=== PATIENT | male | born 1935 | race Caucasian/White ===

== ENCOUNTER 2016-12-04 10:13 | Emergency (ER) | payer MEDICARE, BC ==
[~2016-12-04] VITALS: Ht 177.8 cm; Wt 79.4 kg
[~2016-12-04 10:13] MED LIST: AMLO5TAB2 PO; BUDE10.2 IH; CHOL10007 PO; CYCL1DRO OP; FINA5TAB4 PO; LOSA100T6 PO; MULT-245 PO; SIMV20TA3 PO; VITA1000 PO; [UNRECOGNIZED DRUG - REMARK]
--- NOTE | 2016-12-04 10:56 | PHYS DOC ---
Adult General Chief Complaint Chief Complaint: LOWER EXT PAIN [facility] HPI Patient is a 81 year old male presents the emergency room with a complaint of atraumatic left lower leg swelling that has been progressive over the past 3-4 months. Patient denies history of surgery to the left lower leg. He denies any previous infections to his left lower leg. Patient is currently taking doxycycline for pneumonia that was diagnosed clinically. This was done and is primary care doctor's office last week. Patient denies any fevers, chills, myalgias or arthralgias. He does state that he continues to have a productive cough that has not seemed to improve while taking the doxycycline. Patient was initially prescribed another antibiotic, which he does not remember the name of , approximately 3 weeks ago. He states that he did not take the antibiotic as he reviewed the potential side effects of the medication and determined them to be deleterious to his health. He denies any history of chronic lung disease. Review of Systems Review of Systems Constitutional: Denies fever or chills [] Eyes: Denies change in visual acuity, redness, or eye pain [] HENT: Denies nasal congestion or sore throat [] Respiratory: Denies cough or shortness of breath [] Cardiovascular: No additional information not addressed in HPI [] GI: Denies abdominal pain, nausea, vomiting, bloody stools or diarrhea [] : Denies dysuria or hematuria [] Musculoskeletal: Denies back pain or joint pain [] Integument: Denies rash or skin lesions [] Neurologic: Denies headache, focal weakness or sensory changes [] Endocrine: Denies polyuria or polydipsia [] Allergies Allergies Allergies Coded Allergies Type Severity Reaction Last Updated Verified No Known Drug Allergies 04/22/14 No Physical Exam Physical Exam Constitutional: Well developed, well nourished, no acute distress, non-toxic appearance. Patient is afebrile. Patient is seated in a high semi-Fowlers position in no acute distress. Patient did show me some yellowish brown phlegm that he expectorated prior to me coming into the room. HENT: Normocephalic, atraumatic, bilateral external ears normal, oropharynx moist, no oral exudates, nose normal. [] Eyes: PERRLA, EOMI, conjunctiva normal, no discharge. [] Neck: Normal range of motion, no tenderness, supple, no stridor. [] Cardiovascular:Heart rate regular rhythm, grade 2 systolic flow murmur. PMI is displaced laterally. There is no JVD or lower extremity edema. Lungs & Thorax: There is no evidence respiratory distress or respiratory fatigue. Patient's lung sounds are clear to auscultation bilaterally. Abdomen: Bowel sounds normal, soft, no tenderness, no masses, no pulsatile masses. [] Skin: There is a dollar sized area of erythema and slightly raised skin to the anterior lower hines. There is no fluctuant pocket or purulent drainage. There is no ascending lymphangitis. Patient's left lower extremity has no palpable venous cord suggestive of a DVT. There is no fusiform swelling. Left lower extremity has warm, dry skin. There is a strong dorsalis pedis and posterior tibialis pulse. Capillary refill is less than 2 seconds. Back: No tenderness, no CVA tenderness. [] Extremities: No tenderness, no cyanosis, no clubbing, ROM intact, no edema. [] Neurologic: Alert and oriented X 3, normal motor function, normal sensory function, no focal deficits noted. [] Psychologic: Affect normal, judgement normal, mood normal. [] Current Patient Data Vital Signs Vital Signs Date Time Temp Pulse Resp B/P Pulse Ox O2 Delivery O2 Flow Rate FiO2 12/04/16 12:57 62 138/67 96 Room Air 12/04/16 11:57 20 12/04/16 10:25 98.2 98.2 Lab Values Laboratory Tests Test 12/04/16 11:15 White Blood Count 7.9x10^3/uL (4.0-11.0) Red Blood Count 3.98x10^6/uL (4.30-5.70) L Hemoglobin 12.5g/dL (13.0-17.5) L Hematocrit 36.0% (39.0-53.0) L Mean Corpuscular Volume 90fL (79-100) Mean Corpuscular Hemoglobin 31pg (25-35) Mean Corpuscular Hemoglobin Concent 35g/dL (31-37) Red Cell Distribution Width 13.1% (11.5-14.5) Platelet Count 211x10^3/uL (140-400) Neutrophils (%) (Auto) 74% (31-73) H Lymphocytes (%) (Auto) 14% (24-48) L Monocytes (%) (Auto) 8% (0-9) Eosinophils (%) (Auto) 3% (0-3) Basophils (%) (Auto) 1% (0-3) Neutrophils # (Auto) 5.8x10^3uL (1.8-7.7) Lymphocytes # (Auto) 1.1x10^3/uL (1.0-4.8) Monocytes # (Auto) 0.6x10^3/uL (0.0-1.1) Eosinophils # (Auto) 0.2x10^3/uL (0.0-0.7) Basophils # (Auto) 0.0x10^3/uL (0.0-0.2) Sodium Level 132mmol/L (136-145) L Potassium Level 4.1mmol/L (3.5-5.1) Chloride Level 97mmol/L (98-107) L Carbon Dioxide Level 27mmol/L (21-32) Anion Gap 8 (6-14) Blood Urea Nitrogen 9mg/dL (8-26) Creatinine 0.9mg/dL (0.7-1.3) Estimated GFR (Cockcroft-Gault) 80.8 BUN/Creatinine Ratio 10 (6-20) Glucose Level 165mg/dL (70-99) H Calcium Level 8.7mg/dL (8.5-10.1) Total Bilirubin 0.6mg/dL (0.2-1.0) Aspartate Amino Transferase (AST) 22U/L (15-37) Alanine Aminotransferase (ALT) 19U/L (16-63) Alkaline Phosphatase 67U/L (46-116) Total Protein 7.1g/dL (6.4-8.2) Albumin 3.4g/dL (3.4-5.0) Albumin/Globulin Ratio 0.9 (1.0-1.7) L Laboratory Tests 12/04/16 11:15 Laboratory Tests 12/04/16 11:15 EKG EKG [] Radiology/Procedures Radiology/Procedures PA and lateral chest x-ray was performed with adequate technique and interpreted by the radiologist. There is no evidence of infiltrate or consolidation. There is no evidence of acute intrathoracic process. Course & Med Decision Making Course & Med Decision Making Patient is currently taking doxycycline. I will add amoxicillin to cover strep organisms as well as mupirocin ointment to be applied twice a day. Patient will be given a list of primary care providers in this area as he is somewhat disgruntled with his current primary care provider. Patient seen and examined with EVY Liz. In brief, this is an 81 year old male who presents with cellulitis of LLE. No fever or leukocytosis. No abscess. Although patient has been on doxycycline (for atypical pneumonia), he has not been on appropriate antibiotics to cover streptococcus. Patient strongly wishes to go home. As such, will discharge with rx for abx to cover strep. I gave patient strict instructions for close follow up with PCP as well as strict return precautions. Dragon Disclaimer Dragon Disclaimer This electronic medical record was generated, in whole or in part, using a voice recognition dictation system. Departure Departure Impression: Primary Impression: Cough Additional Impression: Cellulitis Disposition: HOME, SELF-CARE Condition: GOOD Referrals: LILLIE LEE MD (PCP) Patient Instructions: Cellulitis, [id number], Cough, Adult, [id number] Additional Instructions: 1. Your chest x-ray today is normal. 2. Take the medication as prescribed. Finish the doxycycline as prescribed as well. 3. Review the discharge instructions provided; specifically for reasons to return to the emergency department. 4. Use the pamphlet provided for assistance in finding a primary care doctor to address your medical concerns and provide follow-up care. Please call tomorrow to make that happen. Scripts Mupirocin (Mupirocin Ointment)22 Gm Oint...g.1 Edna TP TID cellulitis #1 TUBE Prov:AMOL CAR 12/04/16 Amoxicillin 500 Mg Capsule1 Cap PO TID #30 CAP Prov:AMOL CAR 12/04/16 Problem Qualifiers AMOL CAR Dec 04, 2016 10:56 NISH LUCIANO MD Dec 04, 2016 17:16
--- NOTE | 2016-12-04 11:24 | RAD ---
PA and lateral chest. History: Productive cough PA and lateral views were taken of the chest. Comparison is made with a study from July 2013. Heart is normal in size. There is no effusion. There are no acute infiltrates. There is atherosclerotic change in the aorta. Impression: 1. No acute infiltrates or acute chest disease.
[2016-12-04 11:28] LABS: BASO % 1 % (0-3); EOS % 3 % (0-3); HEMOGLOBIN 12.5 g/dL (13.0-17.5); LYMPH # 1.1 x10^3/uL (1.0-4.8); LYMPH % 14 % (24-48); MEAN CORPUSCULAR HEMOGLOBIN 31 pg (25-35); MEAN CORPUSCULAR HGB CONC 35 g/dL (31-37); MEAN CORPUSCULAR VOLUME 90 fL (79-100); MONO % 8 % (0-9); NEUT % 74 % (31-73); PLATELET COUNT 211 x10^3/uL (140-400); RED BLOOD COUNT 3.98 x10^6/uL (4.30-5.70); RED CELL DISTRIBUTION WIDTH 13.1 % (11.5-14.5); WHITE BLOOD COUNT 7.9 x10^3/uL (4.0-11.0)
[2016-12-04 11:33] LABS: CALCIUM 8.7 mg/dL (8.5-10.1); CREATININE 0.9 mg/dL (0.7-1.3); GFR 80.8; POTASSIUM 4.1 mmol/L (3.5-5.1)
[2016-12-04 11:38] LABS: ALBUMIN 3.4 g/dL (3.4-5.0); ALBUMIN/GLOBULIN RATIO 0.9 (1.0-1.7); TOTAL BILIRUBIN 0.6 mg/dL (0.2-1.0); TOTAL PROTEIN 7.1 g/dL (6.4-8.2)
[2016-12-04] MEDS ORDERED: AMOX500C PO (12:31)
[2016-12-04] MEDS ORDERED: MUPI22OI2 TP (12:31)
[2016-12-04 12:57] VITALS: BP 138/67
== END 2016-12-04 13:12 | disposition home or self-care (01) ==
LOC: ER 10:13
DX: L03.116 Cellulitis of left lower limb (principal); R05 Cough; Z87.01 Personal history of pneumonia (recurrent); Z79.84 Long term (current) use of oral hypoglycemic drugs
CPT/HCPCS: 36415; 71020; 80053; 85027; 99285-25

== ENCOUNTER → 2017-12-22 | Outpatient (CLI) | payer MEDICARE, BC | END | disposition home or self-care (01) | LOC: ECHO 08:30 | DX: I08.0 Rheumatic disorders of both mitral and aortic valves (principal); R60.0 Localized edema; R01.1 Cardiac murmur, unspecified | CPT/HCPCS: 93306; 93970 ==

== ENCOUNTER 2018-01-03 06:33 | Emergency (ER) | payer MEDICARE, BC ==
[2018-01-03] MEDS: SODIUM PHOSPHATES 19/7GM 133 ML ENEMA. PR ×2 (07:35)
== END 2018-01-03 08:40 | disposition home or self-care (01) ==
LOC: ER 06:33
DX: K59.00 Constipation, unspecified (principal); I10 Essential (primary) hypertension
CPT/HCPCS: 99284

== ENCOUNTER 2019-06-04 09:37 | Outpatient (CLI) | payer MEDICARE, BC ==
[2019-06-04] VITALS (10 sets, daily range): BP systolic 140–167; BP diastolic 64–78
[~2019-06-04] VITALS: Ht 177.8 cm; Wt 81.6 kg
[~2019-06-04 09:37] MED LIST changes: +AMLO5TAB10 PO; -AMLO5TAB2 PO; +AMOX500C PO; +CHOL100014 PO; -CHOL10007 PO; +LOSA100T14 PO; -LOSA100T6 PO; +MUPI22OI2 TP
[2019-06-04] MEDS ORDERED: TAMS0.4C97 PO (09:55)
[2019-06-04] MEDS ORDERED: POLY17PO29 PO (09:55)
[2019-06-04] MEDS ORDERED: LIDOCAINE 1% Multi-Dose 20 ML VIAL. ONE (10:07)
[2019-06-04 10:15] LABS: CALCIUM 9.1 mg/dL (8.5-10.1)
[2019-06-04 10:19] LABS: PROTHROMBIN TIME PATIENT 13.7 SEC (11.7-14.0)
[2019-06-04 10:58] LABS: HEMATOCRIT 34.4 % (39.0-53.0); HEMOGLOBIN 12.3 g/dL (13.0-17.5); RED BLOOD COUNT 3.78 x10^6/uL (4.30-5.70); RED CELL DISTRIBUTION WIDTH 12.7 % (11.5-14.5); WHITE BLOOD COUNT 6.7 x10^3/uL (4.0-11.0)
[2019-06-04] MEDS ORDERED: fentaNYL PF VIAL 100 MCG/2 ML VIAL ONE (11:01)
[2019-06-04] MEDS ORDERED: MIDAZOLAM HCL/PF 2 MG/2 ML VIAL. ONE (11:01)
[2019-06-04] MEDS ORDERED: HEPARIN for IV BOLUS 10,000 UNIT/10 ML VIAL. ONE (11:35)
[2019-06-04] MEDS ORDERED: HEPARIN for IV BOLUS 10,000 UNIT/10 ML VIAL. IV ONE (11:45)
[2019-06-04] MEDS ORDERED: fentaNYL PF VIAL 100 MCG/2 ML VIAL IV ONE (11:45)
[2019-06-04] MEDS ORDERED: MIDAZOLAM HCL/PF 2 MG/2 ML VIAL. IV ONE (11:45)
[2019-06-04] MEDS ORDERED: LIDOCAINE 1% Multi-Dose 20 ML VIAL. INJ ONE (11:45)
[2019-06-04] MEDS ORDERED: IODIXANOL 320 MG/ML 100 ML VIAL. IART ONE (11:45)
[2019-06-04] MEDS ORDERED: IV 1/2 NORMAL SALINE 1,000 ML IV SCH (12:46)
--- NOTE | 2019-06-04 12:46 | PDOC ---
MODERATE SEDATION ASSESSMENT RISKS/ALTERNATIVES Risks/Alternatives Risks and alternatives of this type of sedation and procedure discussed with: RISK/ALTERNATIVES: Patient H & P ON CHART H & P H & P on chart and reviewed for co-morbid conditions and appropriate labs. H&P ON CHART: Yes STATUS PREG STATUS ASSESSED: N/A MEDS/ALLERGIES REVIEWED Meds/Allergies Reviewed Medications and Allergies including time and route of recently administered narcotics and sedatives. MEDS/ALLERGIES REVIEWED: Yes ASA RATING ASA RATING: III AIRWAY ASSESSMENT Airway Assessment Airway patency, oral function limitations, presence of caps, crowns, dentures, partials, and ability to extend neck assessed. AIRWAY ASSESSMENT: Yes MALLAMPATI SCORE MALLAMPATI SCORE: II PRE-SEDATION ASSESSMENT PRE-SEDATION ASSESSMENT: Yes STEVENSON LEE MD Jun 04, 2019 12:46
--- NOTE | 2019-06-04 13:22 | CARD ---
MR#: [id number] Date of Study: 06/04/2019 Ordering Physician: STEVENSON WALL, Referring Physician: STEVENSON WALL Tech: RT Roger (R) APPROVED REPORT Technologist: RT Roger (R) Nurse: OBDULIO SHER RN Procedure(s) performed: Right and left heart catheterization, selective coronary angiography Fluoro time:5.7 Minutes Dose: 84.80 Contrast:126mL [id number] Moderate sedation:60 minutes INDICATION The indication(s) include : Severe aortic stenosis. [facility] Clinical Frailty Scale [facility] Clinical Frailty Scale: Mildly Frail Heart Failure Heart Failure: No If Yes, Newly Diagnosed: Yes CASE TECHNIQUE During this case, Fluoroscopy and low osmolar contrast were used for imaging. PROCEDURE NARRATIVE After explaining the risks, benefits and alternative options, informed consent was obtained from ariane ent. Patient was brought to the cardiac Time Clerk and his right groin was prepped and draped in the us ual fashion. 20 mL of 2% lidocaine was infiltrated into the skin and subcutaneous tissues for local a nesthesia. Arterial and venous accesses were obtained in the right common femoral artery and vein res pectively and 6 and 8 Sammarinese sheaths inserted. 7.5 Sammarinese [place] catheter was then used to obtain intracardiac pressures, oxygen saturations and cardiac output by thermodilution method. 6 Sammarinese JL4 and 6 Sammarinese JR4 catheters were used to perform selective angiography of the left and right coronary arteries. Patient tolerated the procedure well. Hemostasis was achieved using Angio-Seal and manual c ompression. There were no immediate complications. FINDINGS A. RIGHT HEART CATHETERIZATION 1. Intracardiac pressures: Mean right atrial pressure 7 mmHg, right ventricle pressure 32/1 mmHg, p ulmonary artery pressure 33/11 mmHg with mean PAP 19 mmHg and pulmonary capillary wedge pressure 9 mm Hg. 2. Oxygen saturations: Right atrium 74.4%, pulmonary artery 74.8%, femoral arterial sheath 94.9%. N o evidence of intracardiac shunt. 3. Cardiac output by thermodilution method 5.4 L/m. B. LEFT HEART CATHETERIZATION 1. 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 2. 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 3. The left circumflex artery showed 30% stenosis involving the ostial segment. 4. The right coronary artery was a dominant vessel arising from the right sinus of Valsalva and show ed 40% calcified stenosis involving the proximal segment. Conclusion 1. Nonobstructive coronary artery disease 2. Normal intracardiac pressures with mean PA pressure 19 mmHg and primary capillary wedge pressure 9 mmHg. 3. No evidence of intracardiac shunt. Recommendations Outpatient referral for possible transcatheter aortic valve replacement (TAVR) Signed by : Stevenson Wall, Electronically Approved : 06/04/2019 13:22:16
--- NOTE | 2019-06-04 14:30 | NUR ---
Discharge Note: MILAGROS GALARZA Discharge instructions and discharge home medications reviewed with Patient and a copy given. All questions have been answered and understanding verbalized. The following instructions and handouts were given: Groin after care, angiography after care, and moderate sedation after care. Discontinued lines and drains: Lt forearm 22g s/l discontinued with tip intact. Patient discharged to home with friend via private car. Patient discharged at this time in no apparent distress.
== END 2019-06-04 14:30 | disposition home or self-care (01) ==
LOC: CCL 09:37
PROVIDERS: ATTEND Internal Medicine Cardiovascular Disease
DX: I25.10 Atherosclerotic heart disease of native coronary artery without angina pectoris (principal); I10 Essential (primary) hypertension; E78.00 Pure hypercholesterolemia, unspecified; H91.93 Unspecified hearing loss, bilateral; Z98.890 Other specified postprocedural states; Z96.651 Presence of right artificial knee joint; Z87.891 Personal history of nicotine dependence
CPT/HCPCS: 36415; 80048; 85027; 85610; 93456; 99152; 99153; C1760; C1769; C1773; C1892; J1644; J2250; J3010; Q9967; G0269; C1771

== ENCOUNTER → 2019-07-11 | Outpatient (CLI) | payer MEDICARE, BC ==
[2019-06-04 13:55] VITALS: BP 165/68
[~2019-07-11] MED LIST changes: +POLY17PO29 PO; +TAMS0.4C97 PO
--- NOTE | 2019-07-18 15:02 | RAD ---
MR#: [id number] Date of Study: 07/11/2019 Ordering Physician: STEVENSON WALL Referring Physician: MAYKEL BECKETT Tech: APPROVED REPORT Test Type: Exercise Stress Nurse/Tech: Lisha Fajardo RN Test Indications: Nonreheumatic aortic valve stenosis Cardiac History: Hypertension,COPD Medications: See Electronic Medical Record Medical History: See Electronic Medical Record Resting ECG: SB with PVC's Resting Heart Rate: 57 bpm Resting Blood Pressure: 126/54mmHg Pretest Chest Pain: No chest pain Nurse/Tech Notes S1,S2 with regurgitation. Wheezes in bilateral bases. Stress Symptoms Dyspnea,Fatigue POST EXERCISE Reason for Termination: Reached target heart rate, Fatigue Target HR: Yes Max HR: 214 bpm 187% of Maximum Predicted HR: 114 bpm Exercise duration: 1:10 min:sec, 1 Stage Exercise capacity: 4.6METs Max Blood Pressure: 139/41mmHg Blood Pressure response to exercise: Normal blood pressure response during stress. Heart Rate response to exercise: WNL Chest Pain: No. Arrhythmia: Yes. PVC's ST Change: Yes. non-diagnostic ST changes INTERPRETATION Stress EKG Conclusion: Treadmill exercise stress electrocardiogram did not show any diagnostic eviden ce of ischemia. Patient had poor exercise tolerance. He walked on treadmill for 1 min 10 secs with exercise capacity of 4.6 mets. Signed by : Stevenson Wall, Jackieally Approved : 07/18/2019 15:02:20
== END | disposition home or self-care (01) ==
LOC: NM 10:00
PROVIDERS: ATTEND Internal Medicine Cardiovascular Disease
DX: I49.3 Ventricular premature depolarization (principal); I35.0 Nonrheumatic aortic (valve) stenosis; I10 Essential (primary) hypertension; J44.9 Chronic obstructive pulmonary disease, unspecified
CPT/HCPCS: 93017

== ENCOUNTER → 2020-12-08 | Outpatient (CLI) | payer MEDICARE, BC ==
[2019-06-04 13:55] VITALS: BP 165/68
[~2020-12-08] MED LIST changes: +AMLO-186 PO; -AMLO5TAB10 PO; +REGADENOSON 0.4 MG/5 ML DISP.SYRIN. IV ONE; +SIMV20TA18 PO; -SIMV20TA3 PO
--- NOTE | 2020-12-08 13:38 | RAD ---
MR#: [id number] Date of Study: 12/08/2020 Ordering Physician: STEVENSON LEE, Referring Physician: MAYKEL BECKETT Tech: RT Ruben Estevez) (N) APPROVED REPORT Test Type: Pharmacological Stress Nurse/Tech: CAROLA HADDAD Test Indications: CHF Cardiac History: VALVE REPLACEMENT,HTN, PPM- SEE EMR Medications: SEE EMR Medical History: SEE EMR Resting ECG: A-PACED W/PVC'S Resting Heart Rate: 74 bpm Resting Blood Pressure: 143/62mmHg Pretest Chest Pain: No chest pain Nurse/Tech Notes IRREGULAR RATE AT TIMES, PPM SPIKES NOTED OCCASIONALLY. VSS. DENIED CP OR SOA. Consent: The procedure was explained to the patient in lay terms. Informed consent was witnessed. Troy eout was entered into [employer]. History and Stress Test performed by SRINIVAS Gilman, PHILIPP (R) (N) Pharm. Details Pharmacologic stress testing was performed using 0.4mg per 5ml of regadenoson given intravenously ove r 7-10 seconds. Stress Symptoms VSS, ONLY COMPLAINT PT HAD WAS SOA, WHICH RESOLVED QUICKLY. PT DENIED ANY OTHER SYMPTOMS. POST EXERCISE Reason for Termination: Infusion complete Max HR: 133 bpm Max Blood Pressure: 136/65mmHg Blood Pressure response to exercise: Normal blood pressure response during stress. Heart Rate response to exercise: WNL Chest Pain: No. Arrhythmia: No. ST Change: No. NO SIGNIFICANT CHANGES FROM BASELINE EKG INTERPRETATION Stress EKG Conclusion: No evidence of stress induced EKG changes. Imaging Protocol IMAGE PROTOCOL: Rest Tc-99m/stress Tc-99m 1 day Rest: Stress: Viability: Radiopharm.Tc99m LhanhfrytFk08g Sestamibi Dose10.7mCi 32mCi Duration 15min. 10min. Img Date 12/08/2020 12/08/2020 Inj-Img Oxha52gqb. 60min. Rest Admin Site:IV - Right AntecubitalAdministrator:RT Ruben Etsevez)(N) Stress Admin Site: IV - Right AntecubitalAdministrator: SRINIVAS Gilman, ARRT (R)(N) STRESS DATA End Diast. Vol.110.0mlAv. Heart Rate74.0bpm End Syst. Vol.34.0mlCO Index BSA0.0L/min Myocardial Imrs570.0gEject. Mztiotrg89.0% Stress Rates Pk. Fill Rate2.21EDV/secLVtime Pk. Fill 180.75msec Pk. Empty Rate4.05ESV/secLVtime Pk. Duapx840.86msec 11/29 Pk. Fill0.90EDV/sec Stress Scores Regional WT0.00Summed WT0.00 Regional WM0.00Summed WM0.00 The rest and stress images show normal perfusion, normal contraction and thickening. LV Perf. Quant 17 Seg. SSS0.00 17 Seg. SRS4.00 17 Seg. SDS0.00 Stress Defect Extent (% LAD)0.00Rest Defect Extent (% LAD)0.00Rev. Defect Extent (% LAD)0.00 Stress Defect Extent (% LCX) 0.00Rest Defect Extent (% LCX)32.50Rev. Defect Extent (% LCX)0.00 Stress Defect Extent (% RCA)0.00Rest Defect Extent (% RCA)0.00Rev. Defect Extent (% RCA)0.00 Stress Defect Extent (% JODY)0.00Rest Defect Extent (% JODY)6.30Rev. Defect Extent (% JODY)0.00 Other Information Quality:Average Risk Assessment: Low Risk Conclusion 1. No evidence of stress induced EKG changes 2. Normal perfusion at stress/rest. 3. Normal EF at > 55% 4. Low risk study Signed by : Kel Chatman, Electronically Approved : 12/08/2020 13:38:23
== END ==
LOC: NM 09:58
PROVIDERS: ATTEND Internal Medicine Cardiovascular Disease
DX: I11.0 Hypertensive heart disease with heart failure (principal); I50.32 Chronic diastolic (congestive) heart failure; Z95.4 Presence of other heart-valve replacement
CPT/HCPCS: 78452; 93017; A9500; J2785

== ENCOUNTER → 2021-06-28 | Outpatient (CLI) | payer MEDICARE, BC ==
[2019-06-04 13:55] VITALS: BP 165/68
[~2021-06-28] MED LIST changes: -REGADENOSON 0.4 MG/5 ML DISP.SYRIN. IV ONE
--- NOTE | 2021-06-29 12:29 | CARD ---
MR#: [id number] Date of Study: 06/28/2021 Ordering Physician: STEVENSON LEE, Referring Physician: Gerry BECKETT: Patel Mccartney [facility] APPROVED REPORT EXAM: Two-dimensional and M-mode echocardiogram with Doppler and color Doppler. Other Information Quality : AverageHR: 60bpm Rhythm : NSR INDICATION Aortic Valve Disease RISK FACTORS Hypertension 2D DIMENSIONS Left Atrium(2D)5.0 (1.6-4.0cm)IVSd1.1 (0.7-1.1cm) Aortic Root(2D)3.0 (2.0-3.7cm)LVDd4.9 (3.9-5.9cm) LVOT Diameter2.4 (1.8-2.4cm)PWd1.1 (0.7-1.1cm) LVDs2.1 (2.5-4.0cm)FS (%) 40.9 % SV79.4 mlLVEF(%)71.5 (>50%) Aortic Valve AoV Peak Krishna.188.2cm/sAoV VTI39.2cm AO Peak GR.14.2mmHgLVOT Peak Krishna.78.0cm/s LVOT VTI 17.29cmAO Mean GR.8mmHg VARSHA (VMAX)1.38yv3VZF (VTI)1.93cm2 Mitral Valve MV E Qjaomauk50.2cm/sMV DECEL MNME024np MV A Sndhydpr99.2cm/sMV HIW42fk E/A Ratio0.7MVA (PHT)2.53cm2 TDI E/Lateral E'8.3E/Medial E'9.2 Pulmonary Valve PV Peak Wjgzvpzh741.6cm/sPV Peak Grad.5mmHg Tricuspid Valve TR P. Cutwbyti548rk/sTR Peak Gr.24mmHg LEFT VENTRICLE The left ventricle is normal size. There is normal left ventricular wall thickness. The left ventricu lar systolic function is normal and the ejection fraction is within normal range. EF 55% There is nor mal LV segmental wall motion. Tissue Doppler imaging reveals moderate left ventricular diastolic dysf unction. No left ventricle thrombus noted on this study. There is no ventricular septal defect visual ized. There is no left ventricular aneurysm. There is no mass noted in the left ventricle. RIGHT VENTRICLE The right ventricle is normal size. There is normal right ventricular wall thickness. The right ventr icular systolic function is normal. ATRIA The left atrium is mildly dilated. The right atrium size is normal. The interatrial septum is intact with no evidence for an atrial septal defect or patent foramen ovale as noted on 2-D or Doppler imagi ng. AORTIC VALVE Doppler and Color Flow revealed no significant aortic regurgitation. There is no significant aortic v alvular stenosis. There is no aortic valvular vegetation. The bioprosthetic aortic valve (TAVR) appea rs normal on limited images. MITRAL VALVE The mitral valve is normal in structure and function. There is no evidence of mitral valve prolapse. There is no mitral valve stenosis. Doppler and Color-flow revealed mild mitral regurgitation. TRICUSPID VALVE The tricuspid valve is normal in structure and function. Doppler and Color Flow revealed trace to mil d tricuspid regurgitation. There is no tricuspid valve prolapse or vegetation. There is no tricuspid valve stenosis. GREAT VESSELS The aortic root is normal in size. The ascending aorta is normal in size. The IVC is normal in size a nd collapses >50% with inspiration. PERICARDIAL EFFUSION There is no pleural effusion. There is no evidence of significant pericardial effusion. Critical Notification Critical Value: No <Conclusion> The left ventricular systolic function is normal and the ejection fraction is within normal range. EF 55% There is normal LV segmental wall motion. The bioprosthetic aortic valve (TAVR) appears normal on limited images. Signed by : Kel Chatman, Electronically Approved : 06/29/2021 12:29:05
== END ==
LOC: ECHO 10:02
PROVIDERS: ATTEND Internal Medicine Cardiovascular Disease
DX: I08.1 Rheumatic disorders of both mitral and tricuspid valves (principal)
CPT/HCPCS: 93306